=== PATIENT | female | born 1945 | race Caucasian/White ===

== ENCOUNTER → 2020-06-13 | Outpatient (CLI) | payer MEDICARE, OTHER ==
[~2020-06-13] MED LIST: ALDACTONE 25MG25 MG PO; AMLODIPINE BESYL5 MG PO; AZITHROMYCIN250 MG PO; BYSTOLIC10 MG PO; CALCIUM500 MG PO; CLEOCIN HCL300 MG PO; DAILY MULTIPLE1 EAC1 PO; DECADRON6 MG PO; DEMADEX20 MG PO; ELDERBERRY-VIT1 EACH PO; ENOXAPARIN100 MG/1 M SC; ISOSORBIDE MONO60 MG PO; JANUVIA100 MG PO; JARDIANCE25 MG PO; LEVAQUIN750 MG PO; LOVENOX100 MG/1 M SQ; PERCOCET 5/325 T1 EA PO; SYNTHROID25 MCG PO; VENTOLIN HFA 66.7 GM INH; VITAMIN D325 MCG PO; WARFARIN SODIUM10 MG PO; ZINC SULFATE220 MG PO; ZOLEDRONIC4 MG/5 ML IV
[2020-06-13 14:27] LABS: BUN/CREATININE RATIO 25 (0-10)
== END ==
LOC: LAB 13:30
PROVIDERS: Internal Medicine Cardiovascular Disease
DX: I38 Endocarditis, valve unspecified (principal); I25.9 Chronic ischemic heart disease, unspecified; Z95.2 Presence of prosthetic heart valve
CPT/HCPCS: 36415; 80048

== ENCOUNTER → 2021-03-16 | Outpatient (CLI) | payer MEDICARE, OTHER | LOC: KOH-I 15:36 | DX: J40 Bronchitis, not specified as acute or chronic (principal) | CPT/HCPCS: 71046 ==

== ENCOUNTER → 2021-07-22 | Outpatient (CLI) | payer MEDICARE, OTHER | LOC: KOH-I 14:57 | DX: I80.9 Phlebitis and thrombophlebitis of unspecified site (principal); I83.92 Asymptomatic varicose veins of left lower extremity | CPT/HCPCS: 93971 ==